=== PATIENT | male | born 1995 | race Caucasian/White ===

== ENCOUNTER → 2017-03-25 | Outpatient (CLI) | payer OTHER ==
--- NOTE | 2017-03-25 14:37 | DIAGNOSTIC IMAGING REPORT ---
L TIBIA/FIBULA 2 VIEWS ROUTINE CLINICAL HISTORY: ONGOING LEG PAIN pain COMPARISON: None. DISCUSSION: The bones and joint spaces appear intact. There is no evidence of fracture, dislocation or bony disease. There is no evidence for soft tissue swelling. IMPRESSION: Negative study. The above report was generated using voice recognition software. It may contain grammatical, syntax or spelling errors. Electronically signed by: Fermin Dueñas M.D. 03/25/2017 2:36 PM Dictated Date/Time: 03/25/2017 2:35 PM
--- NOTE | 2017-03-25 14:50 | DIAGNOSTIC IMAGING REPORT ---
LEFT FOOT 3 VIEWS CLINICAL HISTORY: Chronic left foot pain. FINDINGS: 3 views of the left foot are obtained. No prior studies are available for comparison at the time of dictation. The skeletal structures are well mineralized. No fracture is seen. The joint spaces of the foot are well-maintained. Pes planus is suggested. The overlying soft tissues are within normal limits. IMPRESSION: No acute bony abnormality is seen in the left foot. Electronically signed by: Neal Ndiaye M.D. 03/25/2017 2:48 PM Dictated Date/Time: 03/25/2017 2:47 PM
== END | disposition home or self-care (01) ==
LOC: C.RADPV 14:07
PROVIDERS: ATTEND Family Medicine
DX: M79.606 Pain in leg, unspecified (principal)